=== PATIENT | female | born 1950 | race Caucasian/White ===

== ENCOUNTER 2021-12-16 17:07 | Emergency (ER) | payer OTHER ==
[2021-12-16 18:04] LABS: Absolute Lymphocytes (CBC) 1.6 K/uL (0.7-4.9); Hematocrit 39.3 % (36.0-45.0); Lymphocytes % 16.4 % (15.3-44.8); RBC Red Blood Cell Count 4.87 M/uL (3.86-4.86)
--- NOTE | 2021-12-16 18:16 | RAD REPORT ---
EXAM DESCRIPTION: RAD - Chest Single View - 12/16/2021 5:59 pm CLINICAL HISTORY: MALA[facility] COMPARISON: Portable 02/25/2015 TECHNIQUE: AP portable chest image was obtained 12/16/2021 5:59 pm . FINDINGS: Lungs are clear. Heart and vasculature are normal. No measurable pleural effusion and no p neumothorax. No acute bony abnormality seen. Old posterior rib trauma noted lower right chest. No acu te aortic findings suspected. IMPRESSION: No acute cardiopulmonary process.
[2021-12-16 18:24] LABS: Potassium 3.7 mmol/L (3.5-5.1); Troponin High Sensitivity 3.8 pg/mL (<58.9)
--- NOTE | 2021-12-16 18:44 | ER ---
Nurse's Notes [facility] Name: Abby Espinal Age: 71 yrs Sex: Female : 1950 Arrival Date: 12/16/2021 Time: 17:12 Bed 30 Private MD: Diagnosis: Sleep apnea;Insomnia Presentation: 12/16 17:14 Chief complaint: Patient states: i havent been sleeping for a month. i try to go to tw2 sleep then i wake up and i feel shaky. i sleep in a chair and i have done this for years and years. but this waking up and feeling jittery feeling is not normal. the reason why i came today was because i have been thinking i need a cpap machine or something. we got an appt with dr. pierre but its not until January. we have an PA appt with Dr. Polk on Monday. but i just dont know and i am afraid to go to sleep. even if its a nap i have this jittery feeling after i wake up. Chief complaint: Patient states: i dont know if its anxiety or dread about going to sleep but i am just scared. Coronavirus screen: At this time, the client does not indicate any symptoms associated with coronavirus-19. Ebola Screen: Patient denies travel to an Ebola-affected area in the 21 days before illness onset. Initial Sepsis Screen: Does the patient meet any 2 criteria? HR > 90 bpm. Does the patient have a suspected source of infection? No. Patient's initial sepsis screen is negative. Risk Assessment: Do you want to hurt yourself or someone else? Patient reports no desire to harm self or others. Onset of symptoms was December 16, 2021. 17:14 Method Of Arrival: Ambulatory tw2 17:14 Acuity: MARYANN 2 tw2 Triage Assessment: 17:14 General: Appears obese, well groomed, Behavior is anxious. Pain: Denies pain. tw2 Respiratory: Airway is patent Respiratory effort is even, unlabored, Respiratory pattern is regular, symmetrical. Historical: - Allergies: 17:23 Lisinopril; made tongue raw; tw2 17:23 losartan potassium (bulk); extreme dizziness; tw2 17:23 Norvasc; (fatigue, dizziness, sob); tw2 - Home Meds: 17:18 Bystolic 5 mg oral tab 1 tab 0.5 tab in morning and 0.25 mg in pm [Active]; tw2 multivitamin with minerals oral [Active]; - PMHx: 17:18 skin cancer, face; tw2 - PSHx: 17:18 reconstruction on nose; tw2 - Immunization history:: Client reports receiving the 2nd dose of the Covid vaccine, Flu vaccine is up to date. - Social history:: Smoking status: Patient denies any tobacco usage or history of. Screenin:04 Abuse screen: Denies threats or abuse. Nutritional screening: No deficits noted. ss7 Tuberculosis screening: No symptoms or risk factors identified. Fall Risk IV access (20 points). Assessment: 18:04 General: Appears in no apparent distress. Behavior is anxious. Pain: Denies pain. ss7 Neuro: No deficits noted. Cardiovascular: Heart tones S1 S2. Respiratory: Breath sounds are clear bilaterally. GI: No deficits noted. Abdomen is obese, Bowel sounds present X 4 quads. : No deficits noted. EENT: No deficits noted. Derm: No deficits noted. Musculoskeletal: No deficits noted. Vital Signs: 17:14 BP 177 / 105; Pulse 99; Resp 17; Temp 97.8(TE); Pulse Ox 96% on R/A; Weight 99.79 kg tw2 (R); Height 5 ft. 3 in. (160.02 cm); Pain 0/10; 17:24 BP 188 / 91; tw2 18:38 BP 142 / 72; Pulse 78; Resp 18; Pulse Ox 99% on R/A; ss7 17:14 Body Mass Index 38.97 (99.79 kg, 160.02 cm) tw2 ED Course: 17:12 Patient arrived in ED. ds1 17:18 Triage completed. tw2 17:19 Colin Bui MD is Attending Physician. jr11 17:23 Arm band placed on. tw2 17:26 Caitlin Drummond, MAGED is Primary Nurse. ss7 17:59 XRAY Chest (1 view) In Process Unspecified. EDMS 18:02 Basic Metabolic Panel Sent. ss7 18:03 CBC with Diff Sent. ss7 18:03 Troponin HS Sent. ss7 18:04 Patient has correct armband on for positive identification. Bed in low position. Call ss7 light in reach. Adult w/ patient. Pulse ox on. NIBP on. 18:04 BNP Sent. ss7 18:04 No provider procedures requiring assistance completed. Inserted saline lock: 20 gauge ss7 in right antecubital area, using aseptic technique. 18:59 IV discontinued, intact. ss7 Administered Medications: No medications were administered Outcome: 18:43 Discharge ordered by . javed 18:58 Discharged to home ambulatory, with family. ss7 18:58 Condition: good 18:58 Discharge instructions given to patient, Instructed on discharge instructions, follow up and referral plans. Demonstrated understanding of instructions, follow-up care, medications, Prescriptions given X 1. 19:03 Patient left the ED. ss7 Signatures: [facility] ds1 Marie Lowry RN RN tw2 Colin Bui MD MD jr11 Caitlin Drummond RN RN ss7 Corrections: (The following items were deleted from the chart) 17:23 17:18 Allergies: No Known Drug Allergies; tw2 tw2 17:23 17:18 Allergies: Ibuprofen; tw2 tw2
--- NOTE | 2021-12-16 18:44 | EDPHYS ---
Physician Documentation [facility] Name: Abby Espinal Age: 71 yrs Sex: Female : 1950 Arrival Date: 12/16/2021 Time: 17:12 Bed 30 Private MD: ED Physician Colin Bui HPI: 12/16 17:45 This 71 yrs old Female presents to ER via Ambulatory with complaints of Doesn't Feel jr11 Right, Shaky. 17:45 Patient is a 71-year-old female that comes here with over a month of feeling jittery at jr11 night, she states she wakes up at least once a night feeling jittery, takes a couple of deep breaths and goes back to sleep. Patient states that now she dreads going to bed because she knows this is going to happen at least once a night. Patient has a primary care appointment but is not until next Monday. Denies any chest pain shortness of breath, no symptoms during the day.. Onset: The symptoms/episode began/occurred last month. Severity of symptoms: At their worst the symptoms were very mild in the emergency department the symptoms. Historical: - Allergies: 17:23 Lisinopril; made tongue raw; tw2 17:23 losartan potassium (bulk); extreme dizziness; tw2 17:23 Norvasc; (fatigue, dizziness, sob); tw2 - Home Meds: 17:18 Bystolic 5 mg oral tab 1 tab 0.5 tab in morning and 0.25 mg in pm [Active]; tw2 multivitamin with minerals oral [Active]; - PMHx: 17:18 skin cancer, face; tw2 - PSHx: 17:18 reconstruction on nose; tw2 - Immunization history:: Client reports receiving the 2nd dose of the Covid vaccine, Flu vaccine is up to date. - Social history:: Smoking status: Patient denies any tobacco usage or history of. ROS: 17:45 Constitutional: Negative for fever, chills jr11 17:45 All other systems are negative. Exam: 17:45 Constitutional: This is a well developed, well nourished patient who is awake, alert, jr11 and in no acute distress. Head/Face: Normocephalic, atraumatic. Eyes: Extra-ocular motions intact. Lids and lashes normal. Conjunctiva and sclera are non-icteric and not injected. Cornea within normal limits. Periorbital areas with no swelling, redness, or edema. ENT: Nares patent. No nasal discharge, no septal abnormalities noted. Oropharynx with no redness, swelling, or masses, exudates, or evidence of obstruction, uvula midline. Mucous membranes moist. Chest/axilla: Normal chest wall appearance and motion. Nontender with no deformity. No lesions are appreciated. Cardiovascular: Regular rate and rhythm with a normal S1 and S2. No gallops, murmurs, or rubs. Normal PMI, no JVD. No pulse deficits. Respiratory: Lungs have equal breath sounds bilaterally, clear to auscultation and percussion. No rales, rhonchi or wheezes noted. No increased work of breathing, no retractions or nasal flaring. Abdomen/GI: Soft, non-tender, with normal bowel sounds. No distension or tympany. No guarding or rebound. No evidence of tenderness throughout. Back: No spinal tenderness. No costovertebral tenderness. Full range of motion. Skin: Warm, dry with normal turgor. Normal color with no rashes, no lesions, and no evidence of cellulitis. Neuro: Awake and alert, GCS 15, oriented to person, place, time, and situation. No gross motor or sensory deficits. 17:54 ECG was reviewed by the Attending Physician. KG interpreted by me shows normal sinus [facility] rhythm, normal axis, normal intervals, no acute ST changes, EKG normal. Vital Signs: 17:14 BP 177 / 105; Pulse 99; Resp 17; Temp 97.8(TE); Pulse Ox 96% on R/A; Weight 99.79 kg tw2 (R); Height 5 ft. 3 in. (160.02 cm); Pain 0/10; 17:24 BP 188 / 91; tw2 18:38 BP 142 / 72; Pulse 78; Resp 18; Pulse Ox 99% on R/A; ss7 17:14 Body Mass Index 38.97 (99.79 kg, 160.02 cm) tw2 MDM: 17:44 Patient medically screened. jr11 17:45 Differential Diagnosis CHF, sleep apnea. Data reviewed: vital signs, nurses notes. [facility] 12/16 17:27 Order name: Basic Metabolic Panel; Complete Time: 18:43 12/16 17:27 Order name: CBC with Diff; Complete Time: 18:43 12/16 17:27 Order name: Troponin HS; Complete Time: 18:43 12/16 17:27 Order name: XRAY Chest (1 view); Complete Time: 18:43 12/16 17:27 Order name: EKG; Complete Time: 17:28 12/16 17:48 Order name: BNP 12/16 17:27 Order name: Cardiac monitoring; Complete Time: 18:12/16 17:27 Order name: EKG - Nurse/Tech; Complete Time: 18:12/16 17:27 Order name: IV Saline Lock; Complete Time: 18:12/16 17:27 Order name: Labs collected and sent; Complete Time: 18:12/16 17:27 Order name: O2 Per Protocol; Complete Time: 18:12/16 17:27 Order name: O2 Sat Monitoring; Complete Time: 18: Administered Medications: No medications were administered Disposition Summary: 12/16/21 18:43 Discharge Ordered Location: Home jr Condition: Stable jr11 Diagnosis - Sleep apnea jr11 - Insomnia jr11 Followup: jr11 - With: Private Physician - When: 1 - 2 days - Reason: Further diagnostic work-up Discharge Instructions: - Discharge Summary Sheet jr11 - Sleep Apnea jr11 - Living With Sleep Apnea jr11 - Screening for Sleep Apnea jr11 Forms: - Medication Reconciliation Form jr11 - Thank You Letter jr11 - Antibiotic Education jr11 - Prescription Opioid Use jr11 Prescriptions: - Hydroxyzine HCl 50 mg Oral Tablet - take 1 tablet by ORAL route qHS As needed; 20 tablet; Refills: 0, Product jr11 Selection Permitted Signatures: Dispatcher [employer] Marie Andrade RN RN tw2 Colin Bui MD MD jr11 Corrections: (The following items were deleted from the chart) 17:18 Allergies: No Known Drug Allergies; tw2 tw2 17:18 Allergies: Ibuprofen; tw2 tw2
[2021-12-16 19:08] VITALS: TEMP 97.8
[2021-12-16 19:10] VITALS: BP 142/72; O2SAT 99
--- NOTE | 2021-12-20 08:30 | EKG ---
Test Date: 2021-12-16 Test Time: 16:42:42 Hemmer Chainstitch: TREVOR MEASUREMENT RESULTS: Intervals: Rate: 83 OR: 168 QRSD: 82 QT: 384 QTc: 451 [place]: P: 51 OR: 168 QRS: 42 T: 47 INTERPRETIVE STATEMENTS: Normal sinus rhythm Normal ECG Compared to ECG 02/25/2015 08:00:29 No significant changes Electronically Signed On 12-20-21 08:23:33 CDT by Kenny Fuentes
== END 2021-12-16 19:03 | disposition home or self-care (01) ==
LOC: ER 17:07
DX: G47.30 Sleep apnea, unspecified (principal); G47.00 Insomnia, unspecified; Z85.828 Personal history of other malignant neoplasm of skin; Z88.8 Allergy status to other drugs, medicaments and biological substances
CPT/HCPCS: 36415; 71045; 80048; 83880; 84484; 85025; 93005; 99284